=== PATIENT | female | born 1995 | race Two or more races ===

== ENCOUNTER 2025-03-05 08:53 | Outpatient (CLI) | payer OTHER ==
[~2025-03-05 08:53] MED LIST: PRENATAL TABLE1 EACH
[2025-03-05 10:08] LABS: URINE APPEARANCE Clear; URINE BILIRRUBIN Negative (NEGATIVE); URINE BLOOD Negative; URINE COLOR Yellow; URINE GLUCOSE Negative (NEGATIVE); URINE KETONE Negative (NEGATIVE); URINE LEUKOCYTE Negative; URINE NITRATE Negative; URINE PROTEIN Negative (NEGATIVE); URINE UROBILINOGEN 0.2 E.U./dl
[2025-03-05 10:11] LABS: URINE BACTERIA 579.6 uL (0.0-1933); URINE EPITHELIAL CELLS 14.4 uL (0.0-38.8); URINE WBC 10.4 uL (0.0-23.2)
[2025-03-05 10:39] LABS: URINE CAST 0.00 uL (0.0-1.40); URINE RBC 0.5 uL (0.0-20.8)
[2025-03-05 10:41] LABS: BASO % 0.5 % (0.1-1.2); EOS # 0.17 (0.04-0.54); EOS % 1.8 % (0.7-7.0); LYMPH # 1.94 (1.18-3.74); LYMPH % 20.0 % (19.3-53.1); MEAN PLATELET VOLUME 9.90 fl (9.4-12.4); MONO # 0.42 (0.24-0.82); MONO % 4.3 % (4.7-12.5); NEUT # 7.06 (1.56-6.13); NEUT % 73.0 % (34.0-71.1)
[2025-03-05 10:53] LABS: ALT/SGPT 47.0 U/L (12-78); AST/SGOT 26.0 U/L (15-37); BILIRUBIN TOTAL 0.75 mg/dL (0.3-1.2); BUN CREA RATIO 14.0 (7.0-25.0); CHOL HDL RATIO 4.1 (0-5.0); CREATININE SERUM 0.64 mg/dL (0.55-1.02); GFR 108.23; GLOBULINA 3.6 G/DL (2.4-3.5); GLUCOSE FASTING 89.0 mg/dL (65-100); HDL 40.0 mg/dl (40-60); LDL 106.0 mg/dl (0-130); OSMOLALITY SERUM 278.0 MOSM/KG (275-295); VLDL 15.0 (0-39)
[2025-03-05 11:12] LABS: RED CELL DISTRIBUTION WIDTH 19.7 % (11.6-14.4)
== END 2025-03-05 08:58 | disposition home or self-care (01) ==
LOC: LAB 08:53
PROVIDERS: ATTEND Internal Medicine
DX: E78.00 Pure hypercholesterolemia, unspecified (principal); E55.9 Vitamin D deficiency, unspecified; E66.01 Morbid (severe) obesity due to excess calories; R73.9 Hyperglycemia, unspecified; D64.9 Anemia, unspecified

== ENCOUNTER 2025-03-06 13:36 | Inpatient (IN) | payer OTHER ==
[~2025-03-06] VITALS: Ht 160 cm; Wt 122.0 kg
[2025-03-06] MEDS ORDERED: FAMOTIDINE/PF 20 MG in 0.9 % SODIUM CHLORIDE 8 ML IV PUSH ONE (15:00)
[2025-03-06] MEDS ORDERED: 0.9 % SODIUM CHLORIDE 1,000 ML IV SCH (15:00)
[2025-03-06 17:17] LABS: BASO % 0.6 % (0.1-1.2); EOS # 0.16 (0.04-0.54); EOS % 1.4 % (0.7-7.0); LYMPH # 2.61 (1.18-3.74); LYMPH % 22.7 % (19.3-53.1); MEAN PLATELET VOLUME 9.10 fl (9.4-12.4); MONO # 0.43 (0.24-0.82); MONO % 3.7 % (4.7-12.5); NEUT # 8.20 (1.56-6.13); NEUT % 71.3 % (34.0-71.1); RED CELL DISTRIBUTION WIDTH 19.6 % (11.6-14.4)
[2025-03-06 17:37] LABS: INR 0.96
[2025-03-06 17:58] LABS: ALT/SGPT 48 U/L (12-78); AST/SGOT 36 U/L (15-37); BILIRUBIN TOTAL 0.59 mg/dL (0.3-1.2); BUN CREA RATIO 13 (7.0-25.0); CREATININE SERUM 0.70 mg/dL (0.55-1.02); GFR 97.60; GLOBULINA 4.0 G/DL (2.4-3.5); GLUCOSE FASTING 87 mg/dL (65-100); OSMOLALITY SERUM 277 MOSM/KG (275-295)
[2025-03-06 18:04] LABS: HCG QUANTITATIVE < 1 mUI/mL (1-3)
[2025-03-06 19:47] LABS: URINE APPEARANCE Clear; URINE BILIRRUBIN Negative (NEGATIVE); URINE BLOOD Negative; URINE COLOR Yellow; URINE GLUCOSE Negative (NEGATIVE); URINE KETONE Negative (NEGATIVE); URINE LEUKOCYTE Negative; URINE NITRATE Negative; URINE PROTEIN Negative (NEGATIVE); URINE UROBILINOGEN 0.2 E.U./dl
[2025-03-06] MEDS ORDERED: ACETAMINOPHEN 325 MG TABLET PO PRN (20:15)
[2025-03-06] MEDS ORDERED: ONDANSETRON HCL 4 MG in 0.9 % SODIUM CHLORIDE 50 ML IV PRN (20:15)
[2025-03-06 20:16] LABS: URINE CAST 0.00 uL (0.0-1.40); URINE EPITHELIAL CELLS 18.2 uL (0.0-38.8); URINE RBC 0.5 uL (0.0-20.8); URINE WBC 9.8 uL (0.0-23.2)
[2025-03-06 23:00] VITALS: BP 119/68; O2SAT 100
[2025-03-07 05:00] VITALS: BP 117/69; O2SAT 99
[2025-03-07] MEDS ORDERED: FAMOTIDINE/PF 20 MG/2 ML VIAL IV SCH ×2 (09:00→21:00)
[2025-03-07 10:28] VITALS: BP 128/80; O2SAT 98
[2025-03-07] MEDS ORDERED: ACETAMINOPHEN 500 MG GEL..CAP PO PRN (11:15)
[2025-03-07 18:03] VITALS: BP 130/82; O2SAT 100
[2025-03-08 03:57] VITALS: BP 122/73; O2SAT 98
[2025-03-08 06:10] LABS: BASO % 0.7 % (0.1-1.2); EOS # 0.23 (0.04-0.54); EOS % 2.3 % (0.7-7.0); LYMPH # 2.87 (1.18-3.74); LYMPH % 29.0 % (19.3-53.1); MEAN PLATELET VOLUME 9.40 fl (9.4-12.4); MONO # 0.49 (0.24-0.82); MONO % 4.9 % (4.7-12.5); NEUT # 6.20 (1.56-6.13); NEUT % 62.7 % (34.0-71.1); RED CELL DISTRIBUTION WIDTH 23.1 % (11.6-14.4)
[2025-03-08] MEDS ORDERED: Cyanocobalamin/Mecobalamin 1 TAB.SL SL SCH (09:00)
[2025-03-08] MEDS ORDERED: IRON FUM,PS/FOLIC/BCOMP,C NO.9 1 CAP CAPSULE PO SCH (09:00)
[2025-03-08] MEDS ORDERED: SOD FERRIC GLUC COMPLX/SUCROSE 62.5 MG in 0.9 % SODIUM CHLORIDE 50 ML IV SCH (09:00)
[2025-03-08] MEDS ORDERED: FOLIC ACID 1 MG TABLET PO SCH (09:00)
[2025-03-08 09:56] VITALS: BP 111/75; O2SAT 98
== END 2025-03-08 15:41 | disposition home or self-care (01) | DRG 812 ==
LOC: ER 13:37 → MEDJ 20:21 → SEC-K 20:21 → MEDJ 22:27
PROVIDERS: General Practice; ADMIT Internal Medicine; ATTEND Internal Medicine
PROC: BU4CZZZ Ultrasonography of Uterus and Ovaries (ICD-10-PCS; principal; 2025-03-06)
PROC: 30233N1 Transfusion of Nonautologous Red Blood Cells into Peripheral Vein, Percutaneous Approach (ICD-10-PCS; 2025-03-07)
DX: D64.89 Other specified anemias (principal); N92.0 Excessive and frequent menstruation with regular cycle; D75.838 Other thrombocytosis